=== PATIENT | male | born 1960 | race Caucasian/White ===

== ENCOUNTER 2017-03-09 18:54 | Emergency (ER) | payer BC, OTHER ==
[2017-03-09 19:00] VITALS: BP 166/76; PULSE 113; RESP 20; TEMP 99.5
--- NOTE | 2017-03-09 19:05 | ED ---
Upper Extremity HPI - General Chief Complaint: Extremity Injury, Upper Stated Complaint: [facility] rt wrist Time Seen by Provider: 03/09/17 19:01 Source: patient, RN notes reviewed Mode of arrival: ambulatory Limitations: no limitations - History of Present Illness Initial Comments: This is a 56-year-old male presents emergency Department chief complaint right wrist pain. Patient states the pain started today after he had tackle/ apprehend a person. Patient states that he works for him [employer]. Patient states that he had a person fall onto his wrists and states that he also was striking his wrist. Patient states that the pain is only his wrist region denies any hand pain or proximal forearm pain. He states it is worse when he flexes extends or tries to rotate his wrist. He states he cannot open door secondary to pain with opening the door knob. Patient is right-hand dominant no previous injuries. - Related Data Home Medications Medication Instructions Recorded Confirmed Lisinopril [Prinivil] 10 mg PO DAILY 08/17/14 03/09/17 Pravastatin Sodium [Pravachol] 40 mg PO HS 08/17/14 03/09/17 Ezetimibe [Zetia] 10 mg PO DAILY 03/09/17 03/09/17 Allergies Allergy/AdvReac Type Severity Reaction Status Date / Time No Known Allergies Allergy Verified 03/09/17 19:12 Review of Systems ROS Statement: Those systems with pertinent positive or pertinent negative responses have been documented in the HPI. ROS Other: All systems not noted in ROS Statement are negative. Past Medical History Past Medical History: Hypertension Additional Past Medical History / Comment(s): hernia History of Any Multi-Drug Resistant Organisms: None Reported Past Surgical History: Hernia Repair Past Psychological History: No Psychological Hx Reported Smoking Status: Never smoker Past Alcohol Use History: None Reported Past Drug Use History: None Reported General Exam Limitations: no limitations General appearance: alert, in no apparent distress Neck exam: Present: normal inspection, full ROM. Absent: tenderness, meningismus, lymphadenopathy Respiratory exam: Present: normal lung sounds bilaterally. Absent: respiratory distress, wheezes, rales, rhonchi, stridor Cardiovascular Exam: Present: regular rate, normal rhythm, normal heart sounds. Absent: systolic murmur, diastolic murmur, rubs, gallop, clicks Extremities exam: Present: other (Right wrist there is tenderness over the distal radius and ulna, no obvious deformity minimal swelling neurovascular intact there is no and tenderness no tenderness over the metacarpals, there is no proximal forearm tenderness. Pedal pulses equal bilaterally neurovascular intact) Neurological exam: Present: reflexes normal. Absent: motor sensory deficit Skin exam: Present: warm, dry, intact, normal color. Absent: rash Course Vital Signs 03/09/17 18:56 Temperature 99.5 F Pulse Rate 113 H Respiratory 20 Rate Blood Pressure 166/76 O2 Sat by Pulse 98 Oximetry Medical Decision Making - Medical Decision Making 56-year-old male present emergency from for right wrist pain. Patient x-rays show no acute fracture. Patient be discharged at this time follow up with [facility]. Return parameters were discussed. Disposition Clinical Impression: Right wrist sprain Disposition: HOME SELF-CARE Condition: Stable Instructions: Wrist Injury (ED) Additional Instructions: Please return to the Emergency Department if symptoms worsen or any other concerns. Referrals: Jorge Hong Jr, DO [Primary Care Provider] - 1-2 days Time of Disposition: 19:21
--- NOTE | 2017-03-09 19:37 | XR ---
EXAMINATION TYPE: XR wrist complete RT DATE OF EXAM: 03/09/2017 7:18 PM COMPARISON: NONE HISTORY: Wrist pain TECHNIQUE: 4 views FINDINGS: I see no fracture nor dislocation. Carpal bones are intact. There are no erosions. IMPRESSION: Negative right wrist exam.
== END 2017-03-09 19:28 | disposition home or self-care (01) ==
LOC: EC 18:54
DX: S63.501A Unspecified sprain of right wrist, initial encounter (principal); I10 Essential (primary) hypertension; Z79.899 Other long term (current) drug therapy; W50.0XXA Accidental hit or strike by another person, initial encounter; Y99.0 Civilian activity done for income or pay
CPT/HCPCS: 99283

== ENCOUNTER 2020-04-04 10:08 | Day surgery (SDC) | payer BC ==
[2020-04-01 15:33] VITALS: BMI 31.2
[~2020-04-04 10:08] MED LIST: LACTATED RINGERS 1,000 ML IV SCH; LIDOCAINE 1% (10MG/ML) FOR IV START INTRADERMA PRN
[2020-04-04 10:31] VITALS: TEMP 97.3
[2020-04-04] MEDS ORDERED: PROPOFOL 10 MG/ML 20 ML VIAL IV ONE (10:43)
--- NOTE | 2020-04-04 10:45 | P.GSHP ---
History of Present Illness H&P Date: 04/04/20 Chief Complaint: Screening colonoscopy This a 59-year-old male presents today for screening colonoscopy. Patient denies any significant GI complaints. Past Medical History Past Medical History: Hyperlipidemia, Hypertension Additional Past Medical History / Comment(s): hernia History of Any Multi-Drug Resistant Organisms: None Reported Past Surgical History: Hernia Repair Past Anesthesia/Blood Transfusion Reactions: No Reported Reaction Smoking Status: Never smoker - Past Family History Mother Family Medical History: No Reported History Medications and Allergies Home Medications Medication Instructions Recorded Confirmed Type Lisinopril [Prinivil] 10 mg PO DAILY 08/17/14 04/04/20 History Atorvastatin [Lipitor] 20 mg PO DAILY 04/01/20 04/04/20 History Allergies Allergy/AdvReac Type Severity Reaction Status Date / Time ketamine Allergy Hallucinations,difficulty Verified 04/04/20 10:23 coming out of anesthesia Surgical - Exam Vital Signs Temp Pulse Resp BP Pulse Ox 97.3 F L 99 17 148/74 97 04/04/20 10:27 04/04/20 10:27 04/04/20 10:27 04/04/20 10:27 04/04/20 10:27 - General well developed, well nourished, no distress - Eyes PERRL - ENT normal pinna - Neck no masses - Respiratory normal expansion - Cardiovascular Rhythm: regular - Abdomen Abdomen: soft, non tender Assessment and Plan Assessment: We'll perform screening colonoscopy
--- NOTE | 2020-04-04 10:53 | P.OP ---
Date of Procedure: 04/04/20 Preoperative Diagnosis: Screening colonoscopy Postoperative Diagnosis: Diverticulosis Procedure(s) Performed: Colonoscopy Anesthesia: MAC Surgeon: Navneet Bradford Pathology: none sent Condition: stable Disposition: PACU Description of Procedure: The patient's placed on the endoscopy table in the lateral position. Digital rectal exam was performed which revealed no abnormalities. Flexible colonoscope was then placed patient anus passed throughout the entire colon. The ileocecal valve was visualized. The cecum, ascending colon appeared normal. In the transverse, descending and sigmoid colon there was extensive diverticular changes. Scope was then brought back the rectum and this appeared normal. Scope withdrawn for patient.
[2020-04-04 10:59] VITALS: RESP 16
[2020-04-04 11:16] VITALS: BP 110/55; PULSE 78
== END 2020-04-04 11:23 | disposition home or self-care (01) ==
LOC: ORWHC2ENDO 10:08
PROVIDERS: ATTEND Surgery
DX: Z12.11 Encounter for screening for malignant neoplasm of colon (principal); K57.30 Diverticulosis of large intestine without perforation or abscess without bleeding; I10 Essential (primary) hypertension; E78.5 Hyperlipidemia, unspecified; Z87.19 Personal history of other diseases of the digestive system; Z98.890 Other specified postprocedural states; Z79.899 Other long term (current) drug therapy; Z88.4 Allergy status to anesthetic agent
CPT/HCPCS: J2704; G0121; 45378

== ENCOUNTER → 2023-02-05 | Outpatient (CLI) | payer BC ==
--- NOTE | 2023-02-05 09:05 | US ---
EXAMINATION TYPE: US abdomen complete DATE OF EXAM: 02/05/2023 COMPARISON: NONE CLINICAL INDICATION: Male, 62 years old with history of R89.9; Elevated liver enzymes TECHNIQUE: Multiple sonographic images of the abdomen are obtained. FINDINGS: EXAM MEASUREMENTS: Liver Length: 15.9 cm Gallbladder Wall: 0.1 cm CBD: 0.3 cm Spleen: 10.4 cm Right Kidney: 11.1 x 7.1 x 5.7 cm Left Kidney: 11.2 x 5.9 x 5.5 cm Pancreas: obscured by overlying midline bowel gas Liver: course echotexture Gallbladder: wnl Evidence for sonographic Cummings's sign: no CBD: visualized portions wnl, limited by overlying bowel gas Spleen: wnl Right Kidney: wnl Left Kidney: wnl Upper IVC: wnl Abd Aorta: ectatic proximal portion IMPRESSION: 1. No acute ultrasound abdomen abnormality.
== END | disposition home or self-care (01) ==
LOC: RADUSWWP 07:25
PROVIDERS: ATTEND Family Medicine
DX: R89.9 Unspecified abnormal finding in specimens from other organs, systems and tissues (principal); E80.7 Disorder of bilirubin metabolism, unspecified
CPT/HCPCS: 76700